=== PATIENT | male | born 2000 | race Caucasian/White ===

== ENCOUNTER 2018-06-04 07:54 | Inpatient (IN) ==
[2018-06-04] MEDS ORDERED: Sod Chloride 0.9% Inj 1,000 ML IV.SIG SCH (08:30)
--- NOTE | 2018-06-04 08:32 | ED ---
HPI General Chief Complaint: Psychiatric Symptoms Stated Complaint: Psych Eval/DBPD Time Seen by Provider: 06/04/18 08:30 Source: patient and police Mode of arrival: ambulatory Limitations: no limitations History of Present Illness HPI Narrative: 18-year-old male patient presents to the ER today brought in by PD, apparently had been upset at his family relations situation, had taken an overdose of NyQuil, took about a third of a bottle at around 6 AM. He reports feeling woozy currently. He denies any other issues, chest pains, trouble breathing, or other symptoms. He denies other ingestions. He states that he Thinks he might be trying to kill himself. However, he states that that he got scared. Related Data Home Medications Medication Instructions Recorded Confirmed No Known Home Medications 06/04/18 06/04/18 Allergies Allergy/AdvReac Type Severity Reaction Status Date / Time No Known Allergies Allergy Unverified 06/04/18 08:22 Review of Systems ROS: all other systems reviewed are negative [facility] Medical History Medical History Medical history unknown (Acute) Surgical History Surgical History No history of previous surgery (Acute) Social History Social History Substance History: No History of Abuse Smoking Status: Never smoker How Often Do You Have a Drink Containing Alcohol: Never Recent Travel in [facility] within the Last 8 Weeks: No Recent Out of Country Travel within the Last 8 Weeks: No Immunization History Tetanus Immunization: <5 Years Hx Influenza Vaccine This Season: No Exam Narrative Exam Narrative: GENERAL:Well-developed young male patient currently and mild distress. Awake and oriented x3. SKIN: Focused skin assessment warm/dry. HEAD: Atraumatic. Normocephalic. EYES: Pupils equal and round. No scleral icterus. No injection or drainage. ENT: No nasal bleeding or discharge. Mucous membranes pink and moist. NECK: Trachea midline. No JVD. CARDIOVASCULAR: Regular rate and rhythm. No murmur appreciated. RESPIRATORY: No accessory muscle use. Clear to auscultation. Breath sounds equal bilaterally. GASTROINTESTINAL: Abdomen soft, non-tender, nondistended. Hepatic and splenic margins not palpable. MUSCULOSKELETAL: No obvious deformities. No clubbing. No cyanosis. No edema. NEUROLOGICAL: Awake and alert. No obvious cranial nerve deficits. Motor grossly within normal limits. Normal speech. PSYCHIATRIC: Appropriate mood and affect; insight and judgment normal. Course Initial Documented Vital Signs Temperature 99.1 F 06/04/18 08:03 Pulse Rate 110 H 06/04/18 08:03 Respiratory Rate 20 06/04/18 08:03 Blood Pressure 133/94 H 06/04/18 08:03 Pulse Oximetry 98 06/04/18 08:03 Last Documented Vital Signs Temperature 99.1 F 06/04/18 08:10 Pulse Rate 88 06/04/18 10:38 Respiratory Rate 20 06/04/18 10:38 Blood Pressure 120/74 06/04/18 10:38 Pulse Oximetry 97 06/04/18 10:38 Medical Decision Making MDM Narrative Medical decision making narrative: Lab work was fairly unremarkable. Vital signs are stable in the ER. Urine toxicology screen was negative. There is no significant signs of Tylenol or salicylate toxicity. Patient was observed in the ER for several hours and at 11 AM, states that his symptoms have subsided, he is not having the lightheadedness any more. Vital signs are stable. And my plan would be to medically clear him for psychiatric evaluation. Medical Screen Exam Complete: Yes Emergency Medical Condition: Yes Differential Diagnosis Differential Diagnosis: Intentional overdose/rule out coingestions Lab Data Lab results reviewed: Yes I reviewed the patient's lab results. Result diagrams: 06/04/18 08:30 06/04/18 08:30 Lab Results 06/04/18 06/04/18 06/04/18 Range/Units 08:30 08:30 08:30 WBC 5.4 (4.0-11.0) th/mm3 RBC 5.23 (4.50-5.90) mil/mm3 Hgb 15.8 (13.0-17.0) gm/dL Hct 45.0 (39.0-51.0) % MCV 86.0 (80.0-100.0) fL MCH 30.1 (27.0-34.0) pg MCHC 35.1 (32.0-36.0) % RDW 13.2 (11.6-17.2) % Plt Count 254 (150-450) th/mm3 MPV 7.9 (7.0-11.0) fL Neut % (Auto) 60.1 (16.0-70.0) % Lymph % (Auto) 31.3 (9.0-44.0) % [place] % (Auto) 7.0 (0.0-8.0) % Eos % (Auto) 1.3 (0.0-4.0) % Baso % (Auto) 0.3 (0.0-2.0) % Neut # (Auto) 3.3 (1.8-7.7) th/mm3 Lymph # (Auto) 1.7 (1.0-4.8) th/mm3 [place] # (Auto) 0.4 (0.0-0.9) th/mm3 Eos # (Auto) 0.1 (0.0-0.4) th/mm3 Baso # (Auto) 0.0 (0.0-0.2) th/mm3 WBC Differential . Differential Comment Auto diff final Sodium 140 (136-145) meq/L Potassium 3.4 L (3.5-5.1) meq/L Chloride 105 (98-107) meq/L Carbon Dioxide 25.5 (21.0-32.0) meq/L Anion Gap 10 (5-15) meq/L BUN 14 (7-18) mg/dL Creatinine 0.92 (0.60-1.30) mg/dL Estimated GFR Greater than 89 (>89) mL/min Random Glucose 111 H (74-106) mg/dL Calcium 8.9 (8.5-10.1) mg/dL Total Bilirubin 0.4 (0.2-1.0) mg/dL AST 20 (15-39) U/L ALT 38 (9-52) U/L Alkaline Phosphatase 108 (45-117) U/L Total Protein 7.4 (6.4-8.2) g/dL Albumin 3.9 (3.4-5.0) g/dL TSH 1.800 (0.358-3.740) uIU/mL Salicylates Less than 1.7 L (2.8-20.0) mg/dL Urine Opiates Screen (Neg) Acetaminophen Less than 2.0 L (10.0-30.0) mcg/mL Ur Barbiturates Screen (Neg) Ur Amphetamines Screen (Neg) U Benzodiazepines Scrn (Neg) Urine Cocaine Screen (Neg) U Cannabinoids Screen (Neg) Serum Alcohol Less than 3 (0-5) mg/dL 06/04/18 Range/Units 10:10 WBC (4.0-11.0) th/mm3 RBC (4.50-5.90) mil/mm3 Hgb (13.0-17.0) gm/dL Hct (39.0-51.0) % MCV (80.0-100.0) fL MCH (27.0-34.0) pg MCHC (32.0-36.0) % RDW (11.6-17.2) % Plt Count (150-450) th/mm3 MPV (7.0-11.0) fL Neut % (Auto) (16.0-70.0) % Lymph % (Auto) (9.0-44.0) % [place] % (Auto) (0.0-8.0) % Eos % (Auto) (0.0-4.0) % Baso % (Auto) (0.0-2.0) % Neut # (Auto) (1.8-7.7) th/mm3 Lymph # (Auto) (1.0-4.8) th/mm3 [place] # (Auto) (0.0-0.9) th/mm3 Eos # (Auto) (0.0-0.4) th/mm3 Baso # (Auto) (0.0-0.2) th/mm3 WBC Differential Differential Comment Sodium (136-145) meq/L Potassium (3.5-5.1) meq/L Chloride (98-107) meq/L Carbon Dioxide (21.0-32.0) meq/L Anion Gap (5-15) meq/L BUN (7-18) mg/dL Creatinine (0.60-1.30) mg/dL Estimated GFR (>89) mL/min Random Glucose (74-106) mg/dL Calcium (8.5-10.1) mg/dL Total Bilirubin (0.2-1.0) mg/dL AST (15-39) U/L ALT (9-52) U/L Alkaline Phosphatase (45-117) U/L Total Protein (6.4-8.2) g/dL Albumin (3.4-5.0) g/dL TSH (0.358-3.740) uIU/mL Salicylates (2.8-20.0) mg/dL Urine Opiates Screen Neg (Neg) Acetaminophen (10.0-30.0) mcg/mL Ur Barbiturates Screen Neg (Neg) Ur Amphetamines Screen Neg (Neg) U Benzodiazepines Scrn Neg (Neg) Urine Cocaine Screen Neg (Neg) U Cannabinoids Screen Neg (Neg) Serum Alcohol (0-5) mg/dL ECG Data Attestation: I personally reviewed and interpreted this ECG as follows: Interpretation: EKG shows NSR, no ST elevation or depression, and no arrhythmias. No significant T-wave inversions. Discharge Plan Discharge Disposition Patient Disposition: 30 Still Patient Discharge Condition Condition: Stable Discharge Details Anticipated Discharge Date: 06/04/18 Diagnosis: Drug overdose, intentional Physicians Team ED Provider: Joy Brewer Primary Care Provider: UNKNOWN, Rxs /Orders / Referrals /Forms Prescriptions: No Action No Known Home Medications RF: 0 Discharge Interventions Interventions: Vital Signs Last Done: 06/04/18 10:38 Status ED Status: With Doctor
[2018-06-04 08:53] LABS: Baso % (Auto) 0.3 % (0.0-2.0); Eos # (Auto) 0.1 th/mm3 (0.0-0.4); Eos % (Auto) 1.3 % (0.0-4.0); Hemoglobin 15.8 gm/dL (13.0-17.0); Lymph # (Auto) 1.7 th/mm3 (1.0-4.8); Lymph % (Auto) 31.3 % (9.0-44.0); Mean Corpuscular HGB Conc 35.1 % (32.0-36.0); Mean Corpuscular Hemoglobin 30.1 pg (27.0-34.0); Mean Platelet Volume 7.9 fL (7.0-11.0); Mono # (Auto) 0.4 th/mm3 (0.0-0.9); Neut # (Auto) 3.3 th/mm3 (1.8-7.7); Neut % (Auto) 60.1 % (16.0-70.0); Platelet Count 254 th/mm3 (150-450); Red Blood Count 5.23 mil/mm3 (4.50-5.90); Red Cell Distribution Width 13.2 % (11.6-17.2); White Blood Count 5.4 th/mm3 (4.0-11.0)
[2018-06-04 09:09] LABS: Anion Gap 10 meq/L (5-15)
[2018-06-04 09:14] LABS: Alanine Aminotransferase 38 U/L (9-52); Albumin 3.9 g/dL (3.4-5.0); Aspartate Aminotransferase 20 U/L (15-39); Blood Urea Nitrogen 14 mg/dL (7-18); Calcium 8.9 mg/dL (8.5-10.1); Carbon Dioxide 25.5 meq/L (21.0-32.0); Chloride 105 meq/L (98-107); Glomerular Filtration Rate Greater Than 89 mL/min (>89); Glucose,Random 111 mg/dL (74-106); Potassium 3.4 meq/L (3.5-5.1); Sodium 140 meq/L (136-145)
[2018-06-04 09:20] LABS: Alkaline Phosphatase 108 U/L (45-117); Total Protein 7.4 g/dL (6.4-8.2)
[2018-06-04 10:54] LABS: Amphetamine Screen,Urine Neg (Neg); Barbiturate Screen,Urine Neg (Neg); Cannabinoid Screen,Urine Neg (Neg); Cocaine Screen,Urine Neg (Neg)
[2018-06-04 10:57] LABS: Opiate Screen,Urine Neg (Neg)
--- NOTE | 2018-06-04 15:00 | ECG ---
Date Performed: 06/04/2018 Time Performed: 08:42:54 PTAGE: 18 years EKG: Sinus rhythm MODERATE INTRAVENTRICULAR CONDUCTION DELAY NONSPECIFIC ST ELEVATION BORDERLINE ECG NO PREVIOUS TRACING DOCTOR: Jalen Boothe Interpretating Date/Time 06/04/2018 14:58:59
[2018-06-05] MEDS ORDERED: Aluminum/Magnesium/Simethacone Susp 30 ML UDC PO PRN (11:07)
[2018-06-05] MEDS ORDERED: Bisacodyl 10 MG Supp RECTAL PRN (11:07)
[2018-06-05] MEDS ORDERED: clonazePAM 1 MG Tablet PO ONE (11:45)
--- NOTE | 2018-06-05 16:42 | P.HPPSY ---
Provisional Diagnosis Admission Date: June 05, 2018 11:45 Grandin I.: Adjustment disorder with depressed mood, history of bipolar disorder and ADHD Grandin II.: Cluster B personality disorder? Competence Certification of Person's Competence To Provide Express and Informed Consent I have personally examined Ilya Martini, a person being served at [facility] on, June 05, 2018 1631. Express and informed consent means consent voluntarily given in writing, by a competent person, after sufficient explanation and disclosure of the subject matter involved to enable the person to make a knowing and willful decision without any element of force, fraud, deceit, duress, or other form of constraint or coercion. This person is 18 years of age or older, is not now known to be incompetent to consent to treatment with a guardian advocate, and does not have a health care surrogate or proxy currently making medical treatment decisions. I have found this person to be one of the following: [] Competent to provide express and informed consent, as defined above, for voluntary admission to this facility and is competent to provide express and informed consent for treatment. He/she has the consistent capacity to make well reasoned, willful, and knowing decisions concerning his or her medical or mental health treatment. The person fully and consistently understands the purpose of the admission for examination/placement and is fully capable of personally exercising all rights assured under [place] [] Incompetent to provide express and informed consent to voluntary admission, and this is incompetent to provide express and informed consent to treatment. The person must be transferred to involuntary status and a petition for a guardian advocate filed with the Circuit Court. [x] Refusing to provide express and informed consent to voluntary admission but is competent to provide express and informed consent for treatment. The person must be discharged or transferred to involuntary status. Form shall be completed within 24 hours of a person's arrival at the receiving facility and filed in the clinical record of each person: 1. Admitted on a voluntary basis 2. Permitted to provide express and informed consent to his/her own treatment 3. Allowed to transfer from involuntary to voluntary status 4. Prior to permitting a person to consent to his or her own treatment after having been previously found incompetent to consent to treatment. History of Present Illness Capacity: Has capacity History of Present Illness: The patient is a 18-year-old man, domiciled alone in [facility], single, unemployed, first time at [facility], with a psychiatric history of bipolar disorder, ADHD, 2 previous psychiatric hospitalizations, no prior suicide attempt, no self cutting behavior, he is not in treatment at the moment, no significant medical history, who presents to the ER today brought in by PD, apparently had been upset at his family relations situation, had taken an overdose of NyQuil, took about a third of a bottle at around 6 AM with suicidal intention. He reports feeling woozy currently. On my psychiatric evaluation the patient is oddly related, with very flat affect, now minimizing suicidal attempt. Patient reports that he has been feeling depressed lately, he says that he feels like a failure, because he is unable to make his family happy. He says that he moved along in [place] from [place] to prove to his family that he can make it along "rather than that I have being doing very bad" . He says that he did not wanted to , "but he wants to sleep forever". The patient reports that he has not been enjoying life, sleeping poorly, with lack of motivation to work, has been having suicidal thoughts, sleeping poorly. The patient is fully oriented x3, no attention deficit, no fluctuation of consciousness. He has a slow thinking, but he is logical, coherent and relevant. PPHx: with a psychiatric history of bipolar disorder, ADHD, 2 previous psychiatric hospitalizations, no prior suicide attempt, no self cutting behavior , he is not in treatment at the moment PMHx : No significant medical he Family Hx: No family psychiatric history Substance Hx : The use of illegal drugs and alcohol Social Hx: Patient was born and raised in [place], he has been living in [facility] for the last year, his single, unemployed, supported by [employer], highest level of education is high school - Inpatient Certification I certify that the inpatient services were ordered in accordance with Medicare regulations governing the order. This includes certification that hospital inpatient services are reasonable and necessary and in the case of services not specified as inpatient-only under 42 CFR 419.22(n), that they are appropriately provided as inpatient services in accordance to with the 2-midnight benchmark under 43 CFR 412.3(e) I certify that inpatient psychiatric hospital services are medically necessary. Evaluation and treatment and/or diagnostic testing are expected to improve the patient's condition. The patient needs on a daily basis, active treatment furnished directly by or requiring the supervision of inpatient psychiatric facility personnel. Estimated Total Length of Stay (Days): 7 Plans for Post Hospital Care: [facility] - History History Provided By: Patient - Medical History Medical History: Medical History (Last Reviewed 06/04/18 @ 08:33 by Joy Brewer MD) Medical history unknown - Surgical History Surgical History: Surgical History (Last Reviewed 06/04/18 @ 08:33 by Joy Brewer MD) No history of previous surgery - Tobacco History Second Hand Smoke Exposure: No Smoking Status: Never smoker - Alcohol History How Often Do You Have a Drink Containing Alcohol: Never - Substance Use History Substance History: No History of Abuse - Travel History Recent Travel in the [place] Within the Last 8 Weeks: No Recent Travel Out of the Country Within the Last 8 Weeks: No - Immunization History Tetanus Immunization: <5 Years Hx Influenza Vaccine This Season: No Medications and Allergies Active Medications: Active Medications Al Hydrox/Mg Hydrox/Simethicone (Mag-Al Plus Susp Liq) 30 ml PO Q6H PRN PRN Reason: DYSPEPSIA Al Hydroxide/Mg Hydroxide (Milk Of Magnesia Liq) 30 ml PO Q12H PRN PRN Reason: Mild Constipation Bisacodyl (Dulcolax Supp) 10 mg RECTAL DAILY PRN PRN Reason: SEVERE CONSITIPATION Sodium Chloride (Ns Inj) 1,000 mls @ 0 mls/hr IV.SIG BOLUS ANJUM Last Infusion: 06/04/18 10:01 Dose: Infused Lactulose (Lactulose Liq) 30 ml PO DAILY PRN PRN Reason: SEVERE CONSITIPATION Senna/Docusate Sodium (Selina-Colace) 1 tab PO BID ANJUM Sennosides (Senokot) 17.2 mg PO Q12H PRN PRN Reason: Moderate Constipation Allergies Allergy/AdvReac Type Severity Reaction Status Date / Time No Known Allergies Allergy Unverified 06/04/18 08:22 Home Medications Medication Instructions Recorded Confirmed Type No Known Home Medications 06/04/18 06/04/18 History Results - Labs CBC & Chem 7: 06/04/18 08:30 06/04/18 08:30 Exam Vital signs: Vital Signs 06/04/18 17:52 06/04/18 22:45 06/05/18 07:06 Pulse Rate 87 61 Respiratory Rate 18 18 18 Blood Pressure 127/69 112/67 Pulse Oximetry 99 98 06/05/18 14:51 Pulse Rate 82 Respiratory Rate 16 Blood Pressure 118/65 Pulse Oximetry 100 Intake & Output 06/04/18 06/05/18 06/05/18 18:59 06:59 18:59 Intake Total 1000 / 1000 Balance 1000 / 1000 Weight 81.647 kg 95.254 kg Intake: IV 1000 / 1000 NS Inj 1,000 ML @ Wide Open IV. 1000 / 1000 SIG BOLUS ANJUM Rx#:[id number] Other: Weight On Admission 95.254 kg Narrative: No psychomotor agitation, no tremors, no EPS, no stiffness, no catatonia present - Constitutional no acute distress - Routine HEENT Exam Head: Present: normocephalic, atraumatic ENT: Present: mucous membranes moist Mental Status Examination Appearance: Appropriate Consciousness: Alert Orientation: x4 Motor Activity: Normal gait Speech: Unremarkable Language: Adequate Fund of Knowledge: Adequate Attention and Concentration: Adequate Memory: Unremarkable Mood: Sad Affect: Sad Thought Process & Associations: Intact Thought Content: Appropriate Hallucination Type: None Delusion Type: None Suicidal Ideation: No Suicidal Plan: No Suicidal Intention: No Homicidal Ideation: No Homicidal Plan: No Homicidal Intention: No Insight: Poor Judgment: Poor Assessment and Plan - Assessment (1) Acute adjustment disorder Code(s): F43.20 - Adjustment disorder, unspecified Status: Acute - Plan Plan: Estimated LOS: [] days On My psychiatric evaluation today I find a patient that is oddly related, he seems to be a little bit internally preoccupied, flat affect, reports that he has been feeling depressed, a failure to himself and his family, pessimistic, with increased hopelessness, helplessness, worthlessness, decreased sleep and appetite, and suicidal thoughts to the point that he tried to commit suicide by overdosing with NyQuil. This is the first time that the patient is at [facility]. No collateral information is available. The patient has self-reported psychiatric history of bipolar disorder, ADHD, 2 previous psychiatric hospitalizations, he denies previous suicidal attempts, denies self cutting behavior. At this moment the patient has an elevated risk of danger to self. He will be admitted in psychiatry for stabilization and safety. We will start Prozac 10 mg daily for depression. Will consult psychiatry for second opinion. Justification for Continued Inpatient Stay: No admission indicate
[2018-06-05] MEDS: FLUoxetine 10 MG Capsule PO SCH (17:27)
[2018-06-05] MEDS: Senna/Docusate Sodium 8.6/50 MG Tablet PO SCH (21:18)
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
[2018-06-06] MEDS ORDERED: Acetaminophen 325 MG Tablet PO PRN (09:05)
[2018-06-06 09:47] LABS: Anion Gap 9 meq/L (5-15); Blood Urea Nitrogen 12 mg/dL (7-18); Calcium 9.3 mg/dL (8.5-10.1); Carbon Dioxide 29.5 meq/L (21.0-32.0); Chloride 104 meq/L (98-107); Cholesterol 130 mg/dL (120-200); Glomerular Filtration Rate Greater Than 89 mL/min (>89); Glucose,Random 102 mg/dL (74-106); Potassium 3.8 meq/L (3.5-5.1); Sodium 142 meq/L (136-145)
[2018-06-06 09:53] LABS: Chol/HDL Ratio 3.62 Ratio; HDL Cholesterol 35.9 mg/dL (40.0-60.0); LDL Cholesterol,Calculated 69 mg/dL (0-99); Triglycerides 127 mg/dL (42-150)
[2018-06-06] MEDS: Senna/Docusate Sodium 8.6/50 MG Tablet PO SCH (09:53)
[2018-06-06] MEDS: FLUoxetine 10 MG Capsule PO SCH (10:00)
[2018-06-06 16:08] LABS: Hemoglobin A1c 4.8 % (4.3-6.0)
[2018-06-06] MEDS: Melatonin 5 MG Tablet PO PRN (20:57)
[2018-06-07] MEDS: FLUoxetine 20 MG Capsule PO SCH (08:19)
--- NOTE | 2018-06-07 12:29 | P.PNPSY ---
Subjective Remarks: Patient seen and examined with nurse. Chart reviewed. Case discussed with nursing staff. Case discussed with counselor. On my examination today, the patient remained somewhat dysphoric. He continues to endorse a "cloud" of chronic suicidal ideation in the back of his thoughts although he does not describe any active suicidal planning or intent. No reported urge to hurt himself on the inpatient unit. Sleep somewhat disrupted secondary to the temperature of the room, and the nurse will address this. No psychotic material. No side effects from medications. No physical complaints. Vital Signs Temp Pulse Resp BP Pulse Ox 06/07/18 05:33 97.8 F 85 16 97/51 L 96 06/06/18 17:18 97.9 F 95 H 18 125/64 98 Laboratory Results - last 24 hr 06/06/18 08:05 Hemoglobin A1c 4.8 Labs reviewed. Review of Systems All other systems reviewed negative except as stated in HPI Mental Status Examination Appearance: Appropriate Consciousness: Alert Orientation: x4 Motor Activity: Other (No motoric abnormalities noted) Speech: Unremarkable Language: Adequate Fund of Knowledge: Adequate Attention and Concentration: Adequate Memory: Unremarkable Mood: Sad Affect: Other (Restricted) Thought Process & Associations: Intact Thought Content: Appropriate Hallucination Type: None Delusion Type: None Suicidal Ideation: Yes (Vague, chronic) Suicidal Plan: No Suicidal Intention: No (Continues to contract for safety on the inpatient unit) Homicidal Ideation: No Homicidal Plan: No Homicidal Intention: No Insight: Fair Judgment: Impulsive Assessment and Plan - Assessment (1) Major depressive disorder, recurrent severe without psychotic features Code(s): F33.2 - Major depressive disorder, recurrent severe without psychotic features Status: Acute - Plan Plan: Patient tolerating increased dose of Prozac well without side effects. Continue Prozac 20 mg daily; could consider further titration of this agent to target low mood. Continue to monitor on the inpatient unit. Continue other medications and care as ordered. Justification for Continued Inpatient Stay: High risk for decompensation in less restrictive environment. Monitoring for impairment in safety, none noted. Discharge Planning: Patient is hopeful for discharge tomorrow. I have encouraged him to consider remaining through the weekend at least. Request Healthcare Surrogate/Guardian Advocate?: No
[2018-06-07 18:13] VITALS: O2SAT 98
[2018-06-07] MEDS: Melatonin 5 MG Tablet PO PRN (21:14)
[2018-06-08 06:43] VITALS: BP 110/59; PULSE 75; RESP 16; TEMP 97.7
[2018-06-08] MEDS: FLUoxetine 20 MG Capsule PO SCH (08:59)
--- NOTE | 2018-06-08 11:55 | P.DSPSY ---
Psychiatry Discharge Summary Inpatient Psychiatric care?: Yes Advance Directives: No Mental Health Advance Directive: No Health Care Proxy: No - Admission Admission Date: June 05, 2018 11:45 - Admission Diagnosis (1) Acute adjustment disorder Code(s): F43.20 - Adjustment disorder, unspecified Brief History: The patient is a 18-year-old man, domiciled alone in [facility], single, unemployed, first time at [place], with a psychiatric history of bipolar disorder, ADHD, 2 previous psychiatric hospitalizations, no prior suicide attempt, no self cutting behavior, he is not in treatment at the moment, no significant medical history, who presents to the ER today brought in by PD, apparently had been upset at his family relations situation, had taken an overdose of NyQuil, took about a third of a bottle at around 6 AM with suicidal intention. He reports feeling woozy currently. On my psychiatric evaluation the patient is oddly related, with very flat affect, now minimizing suicidal attempt. Patient reports that he has been feeling depressed lately, he says that he feels like a failure, because he is unable to make his family happy. He says that he moved along in [place] from [place] to prove to his family that he can make it along "rather than that I have being doing very bad" . He says that he did not wanted to , "but he wants to sleep forever". The patient reports that he has not been enjoying life, sleeping poorly, with lack of motivation to work, has been having suicidal thoughts, sleeping poorly. The patient is fully oriented x3, no attention deficit, no fluctuation of consciousness. He has a slow thinking, but he is logical, coherent and relevant. PPHx: with a psychiatric history of bipolar disorder, ADHD, 2 previous psychiatric hospitalizations, no prior suicide attempt, no self cutting behavior , he is not in treatment at the moment PMHx : No significant medical he Family Hx: No family psychiatric history Substance Hx : The use of illegal drugs and alcohol Social Hx: Patient was born and raised in [place], he has been living in [facility] for the last year, his single, unemployed, supported by trust funds, highest level of education is high school Tobacco Use In Past 30 Days: No How Often Do You Have a Drink Containing Alcohol: Never Hospital Course: Patient was admitted to a locked, inpatient psychiatric unit. Appropriate precautions were in place throughout patient's hospital stay. Patient was seen and examined on the inpatient unit by psychiatry and also visited by counselor. Psychotropic medications were adjusted. Patient tolerated medication changes well without side effects. Patient had improvement in presenting psychiatric symptomatology during the course of his hospital stay. There was no evidence of any suicidality or homicidality on the inpatient unit. There was no evidence of any self-care deficit. On the day of discharge: Patient seen and examined with nurse. Chart reviewed. Case discussed with nursing staff. No behavioral issues noted overnight. Case discussed in treatment team. Therapists note that the patient is attending select group activities and that his mood seems to improve when he socializes with peers. On my examination today, the patient is insisting on discharge from the inpatient psychiatric unit today. His affect does seem brighter today and he reports that his mood is improved. I can elicit no severe depressive or hypomanic/manic symptoms. He denies any suicidal or homicidal ideation, intent or plan at this time. He does continue to articulate chronic thoughts of as previously documented but feels that these thoughts are manageable and are unlikely to change in his estimation given their chronicity. He has no audiovisual hallucinations, and I can elicit no delusional material. There is no evidence of impairment in reality construction. He denies any side effects from medications besides some mild nausea. No physical complaints otherwise. Weighing the relevant factors and based on the available evidence, I conveyancer that the patient does not presently meet criteria for involuntary psychiatric hospitalization. There is no evidence of imminent risk of harm to self or others at this point, nor is there evidence of self-care deficit to substantiate involuntary psychiatric hospitalization. I do believe that the patient would benefit from additional inpatient psychiatric observation and stabilization and have strongly recommended that he remain voluntarily for this purpose. The patient has declined and is insisting on discharge from the inpatient psychiatric unit today. Having no basis to retain the patient at this point, I will discharge him AGAINST MEDICAL ADVICE. I have explained to the patient that he is leaving AGAINST MEDICAL ADVICE. We will bolster the patient's protective factors by having the counselor refer him for outpatient mental health services on discharge. Patient is also to follow up with primary care. I have counseled the patient regarding warning signs, including any acute suicidal or violent ideation, for need to return to the psychiatric emergency room as part of a general safety plan. - Discharge Discharge Date: 06/08/18 - Discharge Diagnosis (1) Major depressive disorder, recurrent, in partial remission Diagnosis: Principal Code(s): F33.41 - Major depressive disorder, recurrent, in partial remission Status: Acute Discharge Disposition: AMA - Discharge Instructions Discharge Diet: Regular Diet Activities You Can Perform: Weight Bearing As Tolerat - Discharge Time <= 30 minutes Mental Status Examination Appearance: Appropriate Consciousness: Alert Orientation: x4 Motor Activity: Normal gait, Other (No abnormal motor movements noted) Speech: Unremarkable Language: Adequate Fund of Knowledge: Adequate Attention and Concentration: Adequate Memory: Unremarkable Mood: Appropriate, Other (Mood improved versus admission) Affect: Appropriate Thought Process & Associations: Intact, Logical, Linear Thought Content: Appropriate Hallucination Type: None Delusion Type: None Suicidal Ideation: No Suicidal Plan: No Suicidal Intention: No Homicidal Ideation: No Homicidal Plan: No Homicidal Intention: No Mental Status Exam Remarks: Insight and judgment are fair at best. Discharge/Advance Care Plan - Results Vital Signs: Last Vital Signs Temp 97.7 F 06/08/18 06:00 Pulse 75 06/08/18 06:00 Resp 16 06/08/18 06:00 BP 110/59 L 06/08/18 06:00 Pulse Ox 98 06/08/18 06:00 Lab Results: Laboratory Results Hemoglobin A1c 4.8 % (4.3-6.0) 06/06/18 08:05 Triglycerides 127 mg/dL (42-150) 06/06/18 08:05 Cholesterol 130 mg/dL (120-200) 06/06/18 08:05 LDL Cholesterol, Calc 69 mg/dL (0-99) 06/06/18 08:05 HDL Cholesterol 35.9 mg/dL (40.0-60.0) L 06/06/18 08:05 TSH 1.800 uIU/mL (0.358-3.740) 06/04/18 08:30 Summary of Procedures: None done Pending Results: None - Medications Number of antipsychotic medications at discharge: 0 - Discharge Care Plan Goals to Promote Your Health: * To prevent worsening of your condition and complications * To maintain your health at the optimal level Directions to Meet Your Goals: Take your medications as prescribed Follow your dietary instruction Follow activity as directed Keep your appointments as scheduled Take your immunizations and boosters as scheduled If your symptoms worsen call your PCP, if no PCP go to Urgent Care Center or Emergency Room For 27/03 questions related to your inpatient stay or results of tests pending at discharge, please contact Dr. Michael Nguyễn MD at [phone] Smoking is Dangerous to Your Health. Avoid second hand smoking
== END 2018-06-08 15:35 | disposition left against medical advice (07) ==
LOC: NEPC 07:54 → NEDA 06-05 11:45 → H260 06-05 13:12
PROVIDERS: ADMIT Psychiatry & Neurology Psychiatry; ATTEND Psychiatry & Neurology Psychiatry